=== PATIENT | male | born 1995 | race Caucasian/White ===

== ENCOUNTER 2019-04-20 05:41 | Emergency (ER) | payer OTHER ==
[~2019-04-20] VITALS: Ht 180.3 cm; Wt 104.3 kg
[2019-04-20 05:46] VITALS: BP 129/97
--- NOTE | 2019-04-20 06:12 | NUR ---
C/O RED, PAINFUL RASH TO FEET AND GROIN REGION OFF AND ON X SEVERAL WEEKS. PMH-- HERNIA RX-- DENIES
--- NOTE | 2019-04-20 06:23 | NUR ---
PT AMBULATES TO BED 12 WITH STEADY GAIT.
--- NOTE | 2019-04-20 06:27 | NUR ---
PT C/O RASH TO GROIN. GROIN RED. PT STATES TENDER TO TOUCH. WHEN ASKED HOW LONG IT HAS BEEN LIKE THIS PT STATES "MY ENTIRE LIFE I THINK". PT STATES "I HAVE A FEVER EVERY TIME I HAVE PAIN". PT IN BED, CALM AND PLEASANT. VSS AT THIS TIME.
[2019-04-20 07:31] VITALS: BP 129/97
--- NOTE | 2019-04-20 07:31 | NUR ---
Patient discharged with v/s stable. Written and verbal after care instructions given and explained. Patient alert, oriented and verbalized understanding of instructions. Ambulatory with steady gait. All questions addressed prior to discharge. ID band removed. Patient advised to follow up with PMD. Rx of NYSTATIN AND ACETAMINOPHEN given. Patient educated on indication of medication including possible reaction and side effects. Opportunity to ask questions provided and answered. PT GIVEN HOMELESS RRSOURCE PACKET, WAIVER WAS SIGNED, AND MEAL AND HYGIENE WIPES. PT INSTRUCTED TO FOLLOW UP TOMORROW WITH PCP FOR RECHECK.
== END 2019-04-20 07:31 | disposition home or self-care (01) ==
LOC: MED 05:41
DX: B35.6 Tinea cruris (principal); Z98.890 Other specified postprocedural states; Z88.8 Allergy status to other drugs, medicaments and biological substances
CPT/HCPCS: 99283